=== PATIENT | male | born 1955 | race Caucasian/White ===

== ENCOUNTER 2017-02-19 20:09 | Emergency (ER) | payer SELFPAY ==
[2017-02-19] MEDS ORDERED: Lidocaine 1% 20 ML MDV ONE (20:26)
[2017-02-19] MEDS ORDERED: Ibuprofen 800 MG TAB ONE (20:44)
[2017-02-19] MEDS ORDERED: HYDROcodone/Acetaminophen 5/325 mg Tablet ONE (20:44)
== END 2017-02-19 21:20 | disposition home or self-care (01) ==
LOC: MADERS 20:09
DX: S61.001A Unspecified open wound of right thumb without damage to nail, initial encounter (principal); S60.452A Superficial foreign body of right middle finger, initial encounter; I10 Essential (primary) hypertension; F17.210 Nicotine dependence, cigarettes, uncomplicated; Z79.899 Other long term (current) drug therapy; W45.8XXA Other foreign body or object entering through skin, initial encounter
CPT/HCPCS: 99283; J2001